=== PATIENT | female | born 1970 | race Caucasian/White ===

== ENCOUNTER → 2025-06-21 | Outpatient (CLI) | payer OTHER | LOC: M PLAIMG 06:59 | PROVIDERS: ATTEND Physician Assistant | DX: R06.02 Shortness of breath (principal) ==

== ENCOUNTER → 2025-06-28 | Outpatient (CLI) | payer OTHER ==
[~2025-06-28] MED LIST: METHACHOLINE KIT (6 VIAL.NEB PREMIX) INH ONE
== END ==
LOC: M CARPUL 07:26 → EDUNIT# 08:00
PROVIDERS: ATTEND Physician Assistant
DX: R06.02 Shortness of breath (principal)
CPT/HCPCS: 94070; 95070; J7674